=== PATIENT | female | born 1965 | race Two or more races ===

== ENCOUNTER 2017-04-25 19:05 | Emergency (ER) | payer OTHER ==
[~2017-04-25] VITALS: Ht 167.6 cm; Wt 74.8 kg
--- NOTE | 2017-04-25 20:06 | Emergency Room Report ---
History of Present Illness General Chief Complaint: Behavioral Complaint Present Illness HPI 51 yo female patient BIB police complaining of thoughts of suicide. Patient reports living in a "transitional living" house and states "she has been bullied." Patient reports she could not longer take the bullying and was going to cut her wrists or stab herself with a knife. Patient reports telling her counselor her thoughts of hurting herself and the counselor called the ambulance. Patient states she is out of her medication and appointment with psychiatrist is not until next week; medication is Geodon to treat her schizophrenia. Patient reports history of schizophrenia. Patient denies chest pain, SOB, fever. (Dario Dsouza P.A.) Allergies: Uncoded Allergies: LOVAXIN (Allergy, Unknown, 04/25/17) Patient History Past Medical History: see triage record, psych hx Now: No Reviewed Nursing Documentation: PMH: Agreed, PSxH: Agreed (Dario Dsouza.Milly) Review of Systems All Other Systems: negative except mentioned in HPI (Dario Dsouza P.Milly) Physical Exam Vital Signs Date Time Temp Pulse Resp B/P (MAP) Pulse Ox O2 Delivery O2 Flow Rate FiO2 04/25/17 18:53 80 16 126/75 98 Room Air Sp02 EP Interpretation: reviewed, normal General Appearance: alert, GCS 15, non-toxic, mild distress Head: normocephalic, atraumatic Eyes: bilateral eye normal inspection, bilateral eye PERRL ENT: hearing grossly normal, normal pharynx, no angioedema, normal voice Neck: full range of motion, supple/symm/no masses Respiratory: chest non-tender, lungs clear, normal breath sounds, speaking full sentences Cardiovascular #1: regular rate, rhythm, no edema Musculoskeletal: back normal, gait/station normal, normal range of motion, non- tender, calf tenderness Neurologic: alert, oriented x3, responsive, motor strength/tone normal, sensory intact, speech normal Psychiatric: other - suicidal thoughts Skin: normal color, no rash, warm/dry, well hydrated (Dario Dsouza P.ANeal) Medical Decision Making PA Attestation Dr. Martinez is my supervising Physician whom patient management has been discussed with. (Dario Dsouza P.ANeal) Diagnostic Impression: Primary Impression: Suicidal thoughts ER Course Pt. presents to the ED Ddx considered but are not limited to anxiety, depression, suicidal ideation. Vital signs: are WNL, pt. is afebrile Begin psych workup. ORDERS: none required at this time, the diagnosis is clinical ER COURSE: Pending labs and medical clearance, patient will be evaluated by PET. 0945 PM Transfer patient care to Dr. Sauer. (Dario Dsouza) ER Course Patient signed out to me. She presents with chief complaint of suicidal thoughts. She slept for several hours. When she was about to be transferred to a psychiatric facility, she said she felt better. She said she doesn't want any transfer so far away. She said she only had suicidal thought because she had a lot of stress and argument with people. She said she fell better now. No suicidal thought homicidal thought. She was to go home. Discharge her. (STEPHEN MCGOWAN M.D.) Last Vital Signs Date Time Temp Pulse Resp B/P (MAP) Pulse Ox O2 Delivery O2 Flow Rate FiO2 04/25/17 18:53 80 16 126/75 98 Room Air (Dario Dsouza) Status: improved (STEPHEN MCGOWAN M.D.) Disposition: HOME, SELF-CARE Condition: Stable Dario Dsouza Apr 25, 2017 20:05 STEPHEN MCGOWAN M.D. Apr 26, 2017 02:54
[2017-04-25 22:00] VITALS: BP 128/89
[2017-04-25 22:02] LABS: ANION GAP 8 mmol/L (5-15); BLOOD UREA NITROGEN 9 mg/dL (7-18); CALCIUM 9.8 MG/DL (8.5-10.1); CARBON DIOXIDE 32 MMOL/L (21-32); CHLORIDE 100 MMOL/L (98-107); CREATININE 0.8 MG/DL (0.55-1.30); POTASSIUM 3.6 MMOL/L (3.5-5.1); SODIUM 139 MMOL/L (136-145)
[2017-04-25 22:05] LABS: HEMATOCRIT 38.2 % (37.0-47.0); MEAN CORPUSCULAR VOLUME 90 FL (80-99); PLATELET COUNT 448 K/UL (150-450); RED BLOOD COUNT 4.25 M/UL (4.20-5.40); RED CELL DISTRIBUTION WIDTH 12.5 % (11.6-14.8)
[2017-04-25 22:06] LABS: ALANINE AMINOTRANSFERASE 14 U/L (12-78); ALBUMIN 3.6 G/DL (3.4-5.0); ALBUMIN/GLOBULIN RATIO 0.8 (1.0-2.7); ALKALINE PHOSPHATASE 70 U/L (46-116); ASPARTATE AMINO TRANSFERASE 13 U/L (15-37); BILIRUBIN,TOTAL 0.4 MG/DL (0.2-1.0)
[2017-04-25] MEDS ORDERED: METFORMIN HCL850 M1 ORAL (22:19)
[2017-04-26 02:55] VITALS: BP_SYST 122; BP_SYST 128; BP_DIAS 80; BP_DIAS 89
== END 2017-04-26 04:01 | disposition home or self-care (01) ==
LOC: EDBD 19:05 → EMR 19:39
DX: R45.851 Suicidal ideations (principal); Z88.8 Allergy status to other drugs, medicaments and biological substances
CPT/HCPCS: 36415; 80053; 80307; 80329; 81025; 85007; 85025; 99284